=== PATIENT | female | born 1965 | race Caucasian/White ===

== ENCOUNTER → 2018-03-15 | Outpatient (CLI) | payer OTHER, MEDICAID | END | disposition home or self-care (01) | LOC: MA 09:00 | PROC: BH02ZZZ Plain Radiography of Bilateral Breasts (ICD-10-PCS; principal; 2018-03-15) | DX: Z12.31 Encounter for screening mammogram for malignant neoplasm of breast (principal) | CPT/HCPCS: 77067 ==

== ENCOUNTER 2018-05-09 06:14 | Day surgery (SDC) | payer OTHER, MEDICAID ==
[~2018-05-09] VITALS: Ht 154.9 cm; Wt 49.0 kg
[2018-05-09 07:35] VITALS: BP 124/85
[2018-05-09 13:37] VITALS: BP 105/58
== END 2018-05-09 12:45 | disposition home or self-care (01) ==
LOC: GI → OR 09:30 → GI 09:30
PROVIDERS: Internal Medicine
PROC: 0DB98ZX Excision of Duodenum, Via Natural or Artificial Opening Endoscopic, Diagnostic (ICD-10-PCS; principal; 2018-05-09 09:30)
PROC: 0DB68ZX Excision of Stomach, Via Natural or Artificial Opening Endoscopic, Diagnostic (ICD-10-PCS; 2018-05-09 09:30)
PROC: 0DBE8ZX Excision of Large Intestine, Via Natural or Artificial Opening Endoscopic, Diagnostic (ICD-10-PCS; 2018-05-09 09:30)
DX: K29.40 Chronic atrophic gastritis without bleeding (principal); K57.30 Diverticulosis of large intestine without perforation or abscess without bleeding; K52.9 Noninfective gastroenteritis and colitis, unspecified; Q90.9 Down syndrome, unspecified; Z80.42 Family history of malignant neoplasm of prostate
CPT/HCPCS: 43235; 45378; J1200; J1610; J2250; J2310; J3010; J3490

== ENCOUNTER → 2018-07-02 | Outpatient (CLI) | payer OTHER, MEDICAID | END | disposition home or self-care (01) | LOC: US 08:39 | PROC: BW40ZZZ Ultrasonography of Abdomen (ICD-10-PCS; principal; 2018-07-02) | DX: R63.4 Abnormal weight loss (principal) ==

== ENCOUNTER 2018-09-09 07:29 | Inpatient (IN) | payer OTHER, MEDICAID ==
[2018-09-09] VITALS (8 sets, daily range): BP systolic 81–108; BP diastolic 49–76
[~2018-09-09] VITALS: Ht 154.9 cm; Wt 55.1 kg
[2018-09-09 08:27] LABS: CARBON DIOXIDE 26.6 mmol/L (21-32); CHLORIDE SERUM 102 mmol/L (98-107); CREATININE SERUM 1.4 mg/dL (0.6-1.0); GFR1 41 mL/min; GLUCOSE SERUM 132 mg/dL (74-106); POTASSIUM SERUM 5.3 mmol/L (3.5-5.1); SODIUM SERUM 137 mmol/L (136-145)
[2018-09-09 08:29] LABS: BASOPHIL % 0.3 % (0-2); RED CELL DISTRIBUTION WIDTH 13.5 % (11.5-14.5)
[2018-09-09 08:32] LABS: ALKALINE PHOSPHATASE 206 U/L (46-116); ALT/SGPT 45 U/L (14-59); AST/SGOT 70 U/L (15-37); BILIRUBIN TOTAL 0.37 mg/dL (0.20-1.00); TOTAL PROTEIN, SERUM 6.2 g/dL (6.4-8.2)
[2018-09-09 08:35] LABS: ALBUMIN 1.6 g/dL (3.4-5.0); CHOLESTEROL 95 mg/dL (<200); HDL CHOLESTEROL 24 mg/dL (40-60); PLATELET COUNT 428 x10^3mcL (130-400)
[2018-09-09 10:33] LABS: UA SPECIFIC GRAVITY 1.015 (1.005-1.035); microscopic required? YES; urine erythrocyte NEGATIVE (NEGATIVE)
[2018-09-09] MEDS ORDERED: LAXATIVE5 M1 (11:08)
[2018-09-09] MEDS ORDERED: ASPIR 8181 MG (11:08)
[2018-09-09] MEDS ORDERED: LOMOTIL1 TAB (11:09)
[2018-09-09] MEDS ORDERED: ARICEPT10 MG (11:10)
[2018-09-09] MEDS ORDERED: FISH OIL1000 MG (11:10)
[2018-09-09] MEDS ORDERED: FLUOXETINE40 MG (11:11)
[2018-09-09] MEDS ORDERED: LEVOTHYROXIN0.075 M2 (11:11)
[2018-09-09] MEDS ORDERED: BACTRIM DS1 TAB (11:12)
[2018-09-09] MEDS ORDERED: NAMENDA10 M2 (11:12)
[2018-09-09] MEDS ORDERED: DIGESTIVE ENZY220 MG (11:13)
[2018-09-09] MEDS ORDERED: NATURAL IRON65 MG (11:13)
[2018-09-09] MEDS ORDERED: COLACE100 MG (11:13)
[2018-09-09 11:50] LABS: MAGNESIUM 2.1 mg/dL (1.8-2.4)
[2018-09-09 18:11] LABS: microscopic required? NO
[2018-09-09 18:21] LABS: urine erythrocyte NEGATIVE (NEGATIVE)
[2018-09-10] VITALS (17 sets, daily range): BP systolic 88–139; BP diastolic 39–87
[2018-09-10 06:00] LABS: BASOPHIL % 0.1 % (0-2); PLATELET COUNT 359 x10^3mcL (130-400); RED CELL DISTRIBUTION WIDTH 13.9 % (11.5-14.5)
[2018-09-10 06:12] LABS: CALCIUM 7.8 mg/dL (8.5-10.1); CARBON DIOXIDE 30.1 mmol/L (21-32); CHLORIDE SERUM 106 mmol/L (98-107); CREATININE SERUM 0.9 mg/dL (0.6-1.0); GFR1 > 60 mL/min; GLUCOSE SERUM 113 mg/dL (74-106); POTASSIUM SERUM 3.9 mmol/L (3.5-5.1); SODIUM SERUM 143 mmol/L (136-145)
[2018-09-11] VITALS (18 sets, daily range): BP systolic 87–113; BP diastolic 32–59
[2018-09-11 05:47] LABS: CALCIUM 7.6 mg/dL (8.5-10.1); CARBON DIOXIDE 31.1 mmol/L (21-32); CHLORIDE SERUM 106 mmol/L (98-107); CREATININE SERUM 0.9 mg/dL (0.6-1.0); GFR1 > 60 mL/min; GLUCOSE SERUM 94 mg/dL (74-106); POTASSIUM SERUM 3.9 mmol/L (3.5-5.1); SODIUM SERUM 141 mmol/L (136-145)
[2018-09-11 05:50] LABS: BASOPHIL % 0.2 % (0-2); PLATELET COUNT 372 x10^3mcL (130-400); RED CELL DISTRIBUTION WIDTH 14.3 % (11.5-14.5)
[2018-09-12] VITALS (16 sets, daily range): BP systolic 87–121; BP diastolic 45–70
[2018-09-12 05:00] LABS: CALCIUM 7.6 mg/dL (8.5-10.1); CARBON DIOXIDE 31.9 mmol/L (21-32); CHLORIDE SERUM 105 mmol/L (98-107); CREATININE SERUM 0.8 mg/dL (0.6-1.0); GFR1 > 60 mL/min; GLUCOSE SERUM 107 mg/dL (74-106); POTASSIUM SERUM 3.9 mmol/L (3.5-5.1); SODIUM SERUM 140 mmol/L (136-145)
[2018-09-12 05:11] LABS: BASOPHIL % 0.3 % (0-2); PLATELET COUNT 388 x10^3mcL (130-400)
[2018-09-12 05:22] LABS: RED CELL DISTRIBUTION WIDTH 14.7 % (11.5-14.5)
[2018-09-13] VITALS (19 sets, daily range): BP systolic 84–121; BP diastolic 41–65
[2018-09-13 05:24] LABS: BASOPHIL % 0.2 % (0-2); PLATELET COUNT 363 x10^3mcL (130-400)
[2018-09-13 05:33] LABS: CALCIUM 7.8 mg/dL (8.5-10.1); CARBON DIOXIDE 33.9 mmol/L (21-32); CHLORIDE SERUM 106 mmol/L (98-107); CREATININE SERUM 0.8 mg/dL (0.6-1.0); GFR1 > 60 mL/min; GLUCOSE SERUM 114 mg/dL (74-106); POTASSIUM SERUM 3.7 mmol/L (3.5-5.1); SODIUM SERUM 142 mmol/L (136-145)
[2018-09-13 05:38] LABS: RED CELL DISTRIBUTION WIDTH 14.8 % (11.5-14.5)
[2018-09-14] VITALS (18 sets, daily range): BP systolic 84–131; BP diastolic 43–67
[2018-09-14 05:31] LABS: BASOPHIL % 0.2 % (0-2)
[2018-09-14 05:32] LABS: RED CELL DISTRIBUTION WIDTH 14.6 % (11.5-14.5)
[2018-09-14 05:33] LABS: PLATELET COUNT 404 x10^3mcL (130-400)
[2018-09-14 05:37] LABS: CALCIUM 8.3 mg/dL (8.5-10.1); CARBON DIOXIDE 37.1 mmol/L (21-32); CHLORIDE SERUM 103 mmol/L (98-107); CREATININE SERUM 0.8 mg/dL (0.6-1.0); GFR1 > 60 mL/min; GLUCOSE SERUM 105 mg/dL (74-106); POTASSIUM SERUM 3.2 mmol/L (3.5-5.1); SODIUM SERUM 142 mmol/L (136-145)
[2018-09-15] VITALS (13 sets, daily range): BP systolic 81–130; BP diastolic 41–81
[2018-09-15 05:45] LABS: BASOPHIL % 0.1 % (0-2); PLATELET COUNT 380 x10^3mcL (130-400); RED CELL DISTRIBUTION WIDTH 15.1 % (11.5-14.5)
[2018-09-15 05:52] LABS: CARBON DIOXIDE 38.1 mmol/L (21-32); CHLORIDE SERUM 103 mmol/L (98-107); CREATININE SERUM 0.8 mg/dL (0.6-1.0); GFR1 > 60 mL/min; GLUCOSE SERUM 99 mg/dL (74-106); POTASSIUM SERUM 4.1 mmol/L (3.5-5.1); SODIUM SERUM 142 mmol/L (136-145)
[2018-09-16] VITALS: BP 115/48
[2018-09-16 04:00] VITALS: BP 104/53
[2018-09-16 04:55] LABS: BASOPHIL % 0.2 % (0-2); PLATELET COUNT 336 x10^3mcL (130-400)
[2018-09-16 05:04] LABS: RED CELL DISTRIBUTION WIDTH 15.2 % (11.5-14.5)
[2018-09-16 05:07] LABS: CALCIUM 8.3 mg/dL (8.5-10.1); CARBON DIOXIDE 37.2 mmol/L (21-32); CHLORIDE SERUM 103 mmol/L (98-107); CREATININE SERUM 0.9 mg/dL (0.6-1.0); GFR1 > 60 mL/min; GLUCOSE SERUM 73 mg/dL (74-106); POTASSIUM SERUM 3.6 mmol/L (3.5-5.1); SODIUM SERUM 142 mmol/L (136-145)
[2018-09-16 07:30] VITALS: BP 112/54
[2018-09-16 11:15] VITALS: BP 126/81
[2018-09-16 16:05] VITALS: BP 107/61
[2018-09-16 20:00] VITALS: BP 85/53
[2018-09-17] VITALS (7 sets, daily range): BP systolic 102–123; BP diastolic 46–79
[2018-09-17 05:13] LABS: BASOPHIL % 0.1 % (0-2); PLATELET COUNT 376 x10^3mcL (130-400)
[2018-09-17 05:17] LABS: RED CELL DISTRIBUTION WIDTH 15.3 % (11.5-14.5)
[2018-09-17 05:29] LABS: CALCIUM 8.8 mg/dL (8.5-10.1); CARBON DIOXIDE 36.7 mmol/L (21-32); CHLORIDE SERUM 102 mmol/L (98-107); GFR1 > 60 mL/min; GLUCOSE SERUM 198 mg/dL (74-106); POTASSIUM SERUM 3.5 mmol/L (3.5-5.1); SODIUM SERUM 143 mmol/L (136-145)
[2018-09-18] VITALS (7 sets, daily range): BP systolic 104–135; BP diastolic 54–90; Ht 154.9 cm; Wt 55.1 kg
[2018-09-18 05:31] LABS: CALCIUM 9.2 mg/dL (8.5-10.1); CARBON DIOXIDE 38.9 mmol/L (21-32); CHLORIDE SERUM 106 mmol/L (98-107); CREATININE SERUM 0.9 mg/dL (0.6-1.0); GFR1 > 60 mL/min; GLUCOSE SERUM 118 mg/dL (74-106); SODIUM SERUM 146 mmol/L (136-145)
[2018-09-18 05:39] LABS: BASOPHIL % 0 % (0-2); PLATELET COUNT 368 x10^3mcL (130-400); RED CELL DISTRIBUTION WIDTH 15.2 % (11.5-14.5)
[2018-09-19 05:54] VITALS: BP 106/56
[2018-09-19 06:10] LABS: BASOPHIL % 0.1 % (0-2); PLATELET COUNT 361 x10^3mcL (130-400)
[2018-09-19 06:25] LABS: CALCIUM 8.8 mg/dL (8.5-10.1); CHLORIDE SERUM 106 mmol/L (98-107); GFR1 > 60 mL/min; GLUCOSE SERUM 126 mg/dL (74-106); POTASSIUM SERUM 3.6 mmol/L (3.5-5.1); SODIUM SERUM 146 mmol/L (136-145)
[2018-09-19 06:26] LABS: RED CELL DISTRIBUTION WIDTH 15.7 % (11.5-14.5)
[2018-09-19 09:09] VITALS: BP 117/66
[2018-09-19 13:46] VITALS: BP 125/71
[2018-09-19 17:25] VITALS: BP 120/69
[2018-09-19 21:33] VITALS: BP 113/59
[2018-09-20 06:11] LABS: PLATELET COUNT 392 x10^3mcL (130-400)
[2018-09-20 06:22] LABS: RED CELL DISTRIBUTION WIDTH 15.4 % (11.5-14.5)
[2018-09-20 06:28] VITALS: BP 96/50
[2018-09-20 06:32] LABS: CALCIUM 8.6 mg/dL (8.5-10.1); CARBON DIOXIDE 35.6 mmol/L (21-32); CHLORIDE SERUM 107 mmol/L (98-107); GFR1 > 60 mL/min; GLUCOSE SERUM 128 mg/dL (74-106); POTASSIUM SERUM 3.7 mmol/L (3.5-5.1); SODIUM SERUM 149 mmol/L (136-145)
[2018-09-20 07:16] LABS: MONOCYTE 2 % (0-7); PLATELET MORPHOLOGY PLATELETS NORMAL; SEGMENTED NEUTROPHILS 90 % (37-75); rbc morphology (normal/abnorm) NORMAL (NORMAL)
[2018-09-20 08:54] VITALS: BP 116/66
[2018-09-20 13:12] VITALS: BP 107/53
[2018-09-20 18:00] VITALS: BP 124/71
[2018-09-20 21:05] VITALS: BP 106/45
[2018-09-21 05:12] VITALS: BP 191/79
[2018-09-21 17:33] VITALS: BP 122/53
== END 2018-09-21 17:40 | DRG 870 ==
LOC: ED 07:29 → DU 10:46 → IC 10:46 → DU 09-18 15:26
PROVIDERS: Emergency Medicine; ADMIT Internal Medicine
PROC: 5A1955Z Respiratory Ventilation, Greater than 96 Consecutive Hours (ICD-10-PCS; principal; 2018-09-09)
PROC: 0BH17EZ Insertion of Endotracheal Airway into Trachea, Via Natural or Artificial Opening (ICD-10-PCS; 2018-09-09)
PROC: 05HM33Z Insertion of Infusion Device into Right Internal Jugular Vein, Percutaneous Approach (ICD-10-PCS; 2018-09-09)
PROC: B543ZZA Ultrasonography of Right Jugular Veins, Guidance (ICD-10-PCS; 2018-09-09)
DX: A41.9 Sepsis, unspecified organism (principal); J96.01 Acute respiratory failure with hypoxia; J18.9 Pneumonia, unspecified organism; R65.21 Severe sepsis with septic shock; N17.9 Acute kidney failure, unspecified; I12.9 Hypertensive chronic kidney disease with stage 1 through stage 4 chronic kidney disease, or unspecified chronic kidney disease; I13.10 Hypertensive heart and chronic kidney disease without heart failure, with stage 1 through stage 4 chronic kidney disease, or unspecified chronic kidney disease; I25.10 Atherosclerotic heart disease of native coronary artery without angina pectoris; N18.9 Chronic kidney disease, unspecified; F70 Mild intellectual disabilities; Q90.9 Down syndrome, unspecified; F32.9 Major depressive disorder, single episode, unspecified; E03.9 Hypothyroidism, unspecified; E55.9 Vitamin D deficiency, unspecified; Z79.82 Long term (current) use of aspirin; Z68.23 Body mass index [BMI] 23.0-23.9, adult
CPT/HCPCS: 31500; 36600; 82962; 83880; 87804; 90732; 97110-GP; 97112-GP; 97116-GP; 97530-GP; A4628; C9113; J0696; J1265; J1644; J1940; J2250; J2543; J2704; J2765; J2920; J3010; J3370; J3490; J7030; J7040; J7050; J7620; Q0092

== ENCOUNTER → 2019-08-06 | Outpatient (CLI) | payer OTHER, MEDICAID ==
[~2019-08-06] MED LIST: ARICEPT10 MG; ASPIR 8181 MG; BACTRIM DS1 TAB; COLACE100 MG; DIGESTIVE ENZY220 MG; FISH OIL1000 MG; FLUOXETINE40 MG; LAXATIVE5 M1; LEVOTHYROXIN0.075 M2; LOMOTIL1 TAB; NAMENDA10 M2; NATURAL IRON65 MG
== END | disposition home or self-care (01) ==
LOC: US 09:47
PROC: BT4JZZZ Ultrasonography of Kidneys and Bladder (ICD-10-PCS; principal; 2019-08-06)
DX: N18.9 Chronic kidney disease, unspecified (principal)

== ENCOUNTER → 2019-10-04 | Outpatient (CLI) | payer OTHER, MEDICAID | END | disposition home or self-care (01) | LOC: RD 11:59 | DX: S46.912A Strain of unspecified muscle, fascia and tendon at shoulder and upper arm level, left arm, initial encounter (principal); X58.XXXA Exposure to other specified factors, initial encounter; Y92.9 Unspecified place or not applicable ==